=== PATIENT | female | born 1980 | race Caucasian/White ===

== ENCOUNTER 2024-02-04 06:27 | Day surgery (SDC) | payer OTHER, SELFPAY ==
[2024-01-17 06:48] VITALS: BMI 24.8
[2024-01-17 09:40] LABS: INR 1.04; PT 13.5 Sec (11.4-14.6)
[2024-01-17 09:41] LABS: APTT 30.5 Sec (23.4-35.0)
[2024-01-17 09:52] LABS: % Eosinophils 2.7 % (0-6); % Immature Granulocytes 0.4 % (0-0.5); % Lymphocytes 24.3 % (20.5-51.1); % Neutrophils 62.6 % (42.2-75.2); Absolute Basophils 0.1 10^3/uL (0-0.2); Absolute Eosinophils 0.1 10^3/uL (0-0.7); Absolute Lymphocytes 1.2 10^3/uL (1.2-3.4); Absolute Monocytes 0.5 10^3/uL (0.1-0.6); Absolute Neutrophils 3.2 10^3/uL (1.4-6.5); Blood Urea Nitrogen 16 mg/dl (7-17); Calcium 9.8 mg/dl (8.4-10.2); Carbon Dioxide 26 mmol/L (22-30); Chloride 106 mmol/L (98-107); Estimated Creatinine Clearance 103 ml/min; Glucose 83 mg/dl (70-99); Hematocrit 39.7 % (37.0-47.0); Hemoglobin 12.9 g/dL (12.0-16.0); Mean Corp Hgb Conc. 32.5 g/dL (33.0-37.0); Mean Corpuscular Hgb 30.9 pg (27.0-31.0); Mean Platelet Volume 9.9 fL (7.4-10.4); Nucleated Red Blood Cells % 0 %; Platelet Count 254 10^3/uL (130-400); Potassium 3.8 mmol/L (3.5-5.1); Red Blood Cell Count 4.18 10^6/uL (4.20-5.40); Red Cell Dist. Width 13.4 % (11.5-14.5); Sodium 142 mmol/L (135-145); White Blood Cell Count 5.1 10^3/uL (4.8-10.8); eGFR > 60.00
[2024-01-17 10:08] LABS: Beta HCG Quantitative < 2.39 mIU/ml
[2024-02-04] VITALS (14 sets, daily range): BP systolic 130–154; BP diastolic 89–100; BMI 24.8
[2024-02-04] MEDS: TYLENOL 1000 MG PO (12:28)
[2024-02-04] MEDS: NORMOSOL-R 1000 IV ×2 (12:28→21:19)
--- NOTE | 2024-02-04 13:56 | W.SUR.PREOP ---
Pre-Operative Surgical Note
-
I have examined this patient prior to the performance of the scheduled procedure.
The patient's condition is unchanged from the time of the current History and
Physical and the patient is able to undergo the scheduled procedure.
Updated today
--- NOTE | 2024-02-04 17:23 | W.IMMPOSTOP ---
Surgical Immed Post Op Note
-
Primary Surgeon: Glenny Lombardi DO
Fuels Sales Representative: MITCHELL Allen, MITCHELL Barclay
Pre-op Diagnosis: menorrhagia, anemia
Post-op Diagnosis: same
Procedure Performed: Robotic laparoscopic hysterectomy bilateral salpingectomy
Anesthesia Type: general Dr. Wilde
Specimen / Cultures: uterus, cervix, fallopian tubes
Estimated Blood Loss: 15ml
Urine output: 600ml clear yellow
Complications: none
Operative Findings: Enlarged globular shaped uterus, appearance suggestive of adenomyosis. Normal appearing ovaries with follicular cysts.
Counts correct times 2.
Stable to recovery.
[2024-02-04] MEDS: ZOFRAN 4 MG IV (17:28)
[2024-02-04] MEDS: DILAUDID 0.5 MG IV ×3 (17:29→18:07)
[2024-02-04] MEDS: COMPAZINE 10 MG IV (17:52)
[2024-02-04] MEDS: ROXICODONE 5 MG PO ×2 (19:39→23:44)
[2024-02-04] MEDS: TORADOL 15 MG IV (19:40)
[2024-02-04] MEDS: TOPAMAX 25 MG PO (21:18)
--- NOTE | 2024-02-05 00:21 | PTCARENOTE ---
late entry: 02/04/241929 patient oriented to room and floor routines. Inst regional sales coordinator chapa and call chapa within reach. Pt inst on need to void by 0015 02/04. Pt inst to call for assistance to get OOB for first time. Patient denies N/v at this time. pain
12/26 see mar for documentation of pain meds given. POC reviewed, pt verbalized understanding.
[2024-02-05] MEDS: TORADOL 15 MG IV ×2 (02:42→08:41)
[2024-02-05] MEDS: NORMOSOL-R IV ×2 (02:50→10:58)
[2024-02-05 03:30] VITALS: BP 140/91
[2024-02-05 06:33] LABS: % Basophils 0.2 % (0-2); % Eosinophils 0.1 % (0-6); % Immature Granulocytes 0.3 % (0-0.5); % Lymphocytes 11.2 % (20.5-51.1); % Monocytes 8.3 % (1.7-9.3); % Neutrophils 79.9 % (42.2-75.2); Absolute Monocytes 0.7 10^3/uL (0.1-0.6); Absolute Neutrophils 6.9 10^3/uL (1.4-6.5); Hematocrit 35.2 % (37.0-47.0); Hemoglobin 11.9 g/dL (12.0-16.0); Mean Corp Hgb Conc. 33.8 g/dL (33.0-37.0); Mean Corpuscular Hgb 32.6 pg (27.0-31.0); Mean Corpuscular Volume 96.4 fL (81.0-99.0); Mean Platelet Volume 9.6 fL (7.4-10.4); Nucleated Red Blood Cells % 0 %; Platelet Count 264 10^3/uL (130-400); Red Blood Cell Count 3.65 10^6/uL (4.20-5.40); Red Cell Dist. Width 13.2 % (11.5-14.5); White Blood Cell Count 8.7 10^3/uL (4.8-10.8)
[2024-02-05 07:00] LABS: Blood Urea Nitrogen 14 mg/dl (7-17); Carbon Dioxide 26 mmol/L (22-30); Chloride 106 mmol/L (98-107); Estimated Creatinine Clearance 90 ml/min; Potassium 4.8 mmol/L (3.5-5.1); Sodium 137 mmol/L (135-145)
[2024-02-05 07:15] VITALS: BP 141/91
[2024-02-05] MEDS: DIOVAN 80 MG PO (08:38)
[2024-02-05] MEDS: PROTONIX 40 MG PO (08:39)
[2024-02-05] MEDS: LAMICTAL 100 MG PO (08:39)
[2024-02-05] MEDS: TOPAMAX 25 MG PO (08:39)
[2024-02-05] MEDS: ZOLOFT 150 MG PO (08:39)
[2024-02-05] MEDS: ROXICODONE 2.5 MG PO (08:57)
--- NOTE | 2024-02-05 11:02 | CM ---
Initial assessment completed with patient who lives with her and 3 children (7-10-15 y/o) in a 2 story home with B/B on 1st floor and 2 steps to enter. No DME or in-home services. MARBLE COPER was independent, drove and worked. No psychiatric
hospitalizations. [facility]acy is [facility] on [address] in [place], PCP is Dr. April Cooley. Anticipate no needs at discharge.
[2024-02-05 11:35] VITALS: BP 128/90
--- NOTE | 2024-02-05 12:21 | W.DS.TRANS ---
DC Summary - Studio Coordinator
-
Discharge Instructions:
Sleep Apnea Risk Low
Discharge Diagnosis/Procedures Robotic laparoscopic hysterectomy b/l
salpingectomy
Diet Regular
Activity No strenuous activity
Driving Restrictions No driving for 1 week
Bathing Restrictions OK to Shower
Instructions:
Stand-Alone Forms:
Changes to Home Medications: Yes
Discharge Medications:
DC Medications w/original date entered in [facility]
lamotrigine 25 mg tablet (Lamictal) 100 mg PO DAILY Neurological Condition 09/08/16
sertraline 100 mg tablet (Zoloft) 150 mg PO DAILY Mental Health/Anxiety 09/08/16
ibuprofen 600 mg tablet 600 mg PO Q6H PRN Pain 5 days #20 tabs 04/25/23
ondansetron 4 mg disintegrating tablet 4 mg PO TIDPRN PRN nausea/vomiting 5 days #15 tabs 04/25/23
oxycodone 5 mg capsule 10 mg (2 x 5 mg) PO Q4H PRN Pain #30 caps 04/25/23
atomoxetine 80 mg capsule (Strattera) 80 mg PO DAILY Neurological Condition 02/03/24
omeprazole 20 mg capsule,delayed release 20 mg PO DAILY Gastrointestinal Issue 02/03/24
topiramate 25 mg tablet (Topamax) 25 mg PO BID 02/03/24
valsartan 80 mg tablet 80 mg PO DAILY Blood Pressure 02/03/24
acetaminophen 325 mg tablet 650 mg (2 x 325 mg) PO SDS-Q4HPRN PRN mild pain #0 tabs 02/04/24
oxycodone 5 mg tablet 5 mg PO Q6HPRN PRN moderate severe pain #14 tabs 02/04/24
scopolamine base 1 mg over 3 days transdermal patch 1 patch transdermal Q3D PRN PONV 02/04/24
Home Medication Changes
Pending Results: Yes
Additional Pending Results:
surgical path
Total time spent discharging patient (in min): 30
--- NOTE | 2024-02-05 12:26 | CM ---
Patient has been medically cleared for discharge to home with no additional skilled services. Patient has arranged for transport home.
--- NOTE | 2024-02-05 12:52 | W.PN.OBG.DWH ---
Today's Communication / Plan
-
dchome
Assessment/Plan
-
POD#1 s/p RA TLH B/L salpingectomy
Doing well postop and stable for dc home today.
Reviewed dc instructions
Meds list has error but cannot be corrected since noted after list finalized and discharge order in.
Oxycodone 5mg 1 PO Q 4-6 hr was Rx'd and erx to [facility] pharmacy. Disp # 14 tabs no refill.
The list has oxycodone disp #30 tabs which was not sent and is incorrect. Med deleted but unable to delete off list due to signed already.
ALso erx sent yesterday to [facility] canceled. Wrong pharmacy
Subjective Data
-
POD#1
No complaints
Feeling well.
Voiding without difficulty.
Roberto diet
Objective Data
-
Laboratory Results
02/05/24 05:51
02/05/24 05:51
Vital Signs
Temp Pulse Resp BP Pulse Ox
98.4 F 88 16 128/90 98
02/05/24 11:35 02/05/24 11:35 02/05/24 11:35 02/05/24 11:35 02/05/24 11:35
VSS afeb
cor: regular rate
Pulm: clear
Abd: soft +bs NDNT inc cdi
ext: no calf pain
no active vag bleeding
--- NOTE | 2024-02-05 13:06 | W.PN.UPDATE ---
Update Note
Progress Note Update
Pt was planning to be discharged day of surgery but was admitted overnight due to nausea and pain. I did send her Erx for oxycodone 5mg #14 to [facility] which was default pharmacy in system yesterday.
Today pt asking me to make sure pharmacy for rx is [facility]. I sent new Rx to [facility] and then called [facility] to cancel that rx. [facility] pharmacy personnel telling me somone picked up the Rx already today.
Called [facility] pharmacy to alert them to cancel Rx for oxycodone there. Advised to removed scopolamine patch after 72 [address] from placing.
== END 2024-02-05 13:55 | disposition home or self-care (01) ==
LOC: SDS 06:27
PROVIDERS: ATTENDING PHYSICIAN Obstetrics & Gynecology; FAMILY PHYSICIAN Family Medicine
DX: N84.0 Polyp of corpus uteri (principal); N92.0 Excessive and frequent menstruation with regular cycle; D50.0 Iron deficiency anemia secondary to blood loss (chronic)
CPT/HCPCS: 58571; 88307; 36415; 80048; 80051; 82565; 84520; 84702; 85025; 85610; 85730; 86850; 86900; 86901; 87070

== ENCOUNTER 2024-03-01 02:43 | Emergency (ER) | payer OTHER, SELFPAY ==
[2024-03-01 02:46] VITALS: BP 157/105
[2024-03-01 03:02] VITALS: BMI 26.7
[2024-03-01 03:36] LABS: % Basophils 0.8 % (0-2); % Immature Granulocytes 0.5 % (0-0.5); % Lymphocytes 30.9 % (20.5-51.1); % Monocytes 8.3 % (1.7-9.3); % Neutrophils 56.5 % (42.2-75.2); Absolute Basophils 0.1 10^3/uL (0-0.2); Absolute Eosinophils 0.2 10^3/uL (0-0.7); Absolute Lymphocytes 1.9 10^3/uL (1.2-3.4); Absolute Monocytes 0.5 10^3/uL (0.1-0.6); Absolute Neutrophils 3.6 10^3/uL (1.4-6.5); Hematocrit 37.4 % (37.0-47.0); Hemoglobin 12.9 g/dL (12.0-16.0); Mean Corp Hgb Conc. 34.5 g/dL (33.0-37.0); Mean Corpuscular Hgb 31.5 pg (27.0-31.0); Mean Corpuscular Volume 91.2 fL (81.0-99.0); Mean Platelet Volume 9.1 fL (7.4-10.4); Nucleated Red Blood Cells % 0 %; Platelet Count 257 10^3/uL (130-400); White Blood Cell Count 6.3 10^3/uL (4.8-10.8)
[2024-03-01 03:40] LABS: INR 1.04; PT 13.4 Sec (11.4-14.6)
[2024-03-01 03:41] LABS: APTT 32.3 Sec (23.4-35.0)
--- NOTE | 2024-03-01 03:46 | ED.GENMED ---
History of Present Illness
General
Chief Complaint: Vaginal Bleeding
Source: patient
Time Seen by Provider: 03/01/24 02:56
History of Present Illness
History of Present Illness:
This is a pleasant 43-year-old female who had a hysterectomy on 02/03. For the last week she has been having BRB and Clots per Vagina. Tonight was the worst. She awakened to a fist sized clot and was then covered in BRB. Her GEOTECHNICAL ENGINEERING TECHNICIAN advised her in
the past to come to the ER if she saw any BRB. Currently she is spotting. She reports that the spotting occurs after the blood passage. She says tonmaria c's bleeding is the worst she has seen. Patient admits to having a yeast infection medication
applicator in place for 5 days ending 2 days ago. Denies intercourse or anything else in the vagina during the recovery period.
Past History
Past History
ED Past Medical History: Other (Migraines, Renal calculus, Anemia, )
ED Past Surgical History: Tonsilectomy (and adenoids), Urological (Kidney stents, ) and Other (Parahyperthyroidism with partial thyroidectomy)
Social History
Tobacco: Former smoker
Alcohol: None
Personal:
Living: with family
Phy Exam
General Physical Exam
General Presentation: well appearing and mild distress
General age: appears stated age
General Skin: warm and dry
General Habitus: normal
General Mental: alert
Cardiovascular Exam
Cardiovascular Exam: regular rate/rhythm and no edema
Pulmonary Exam
Pulmonary Exam: lungs clear, no respiratory distress and no cough
Genitourinary Exam Female
Exam Female: other (Deferred per OB. OB will be performing this portion of the examination.)
Neurological Exam
Neurological Exam: alert and oriented x3
Musculoskeletal Exam
Musculoskeletal Exam: full ROM
Skin Exam
Skin Exam: normal color and warm/dry
Psychiatric Exam
Psychiatric Exam: normal mood/affect
Course
Orders/Labs/Results
Orders:
Orders
03/01/24 02:55
US Pelvis Only (non-obstetric) Urgent
Comment:
Reason For Exam: vag bleeding
03/01/24 03:23
Complete Blood Count/With Diff Urgent
Comprehensive Metabolic Panel Urgent
PTT Urgent
Prothrombin Time Urgent
Abnormal Lab Results
03/01/24
03:23
RBC 4.10 L 10^6/uL
(4.20-5.40)
MCH 31.5 H pg
(27.0-31.0)
Chloride 108 H mmol/L
(98-107)
BUN 22 H mg/dl
(7-17)
Glucose 102 H mg/dl
(70-99)
03/01/24 03:23
03/01/24 03:23
Vital Signs
Initial and Last Documented VS:
Initial Vital Signs
Temp Pulse Resp BP Pulse Ox
98.3 F 108 18 157/105 99
03/01/24 02:46 03/01/24 02:46 03/01/24 02:46 03/01/24 02:46 03/01/24 02:46
Last Documented Vital Signs
Temp Pulse Resp BP Pulse Ox
98.3 F 79 20 130/90 98
03/01/24 02:46 03/01/24 05:17 03/01/24 05:17 03/01/24 05:17 03/01/24 05:17
*Critical Care Note
Total Time (30-74mins, 75-104mins- exclusive of procedures): Not Applicable
Patient Management
Social determinants of health affecting care: Strong social support
Discussion with other providers: Director Metabolism
Update Note
Update Note:
Dr. Smyth contacted via Barry text. She came down to see and examine the patient. She will contact Dr. Lombardi to inform her of her findings.
ED Attending Note
-
Portions of this chart may have been created with voice recognition software.� Occasional wrong word or��sound alike� substitutions may have occurred due to the inherent limitations of voice recognition software.
Discharge Plan
Departure
Patient Disposition: Home (Routine Discharge)
Date of Disposition: 03/01/24
Time of Disposition: 04:43
Patient with high blood pressure during this ER visit?: Yes
Condition: Good
Discharge Problem:
Post hysterectomy bleeding
Instructions: Heavy Periods (DC), BLOOD PRESSURE
Prescriptions:
No Action
lamotrigine [Lamictal] 25 MG tablet
50 mg PO DAILY
sertraline [Zoloft] 100 MG tablet
150 mg PO DAILY
ibuprofen 600 mg tablet
600 mg PO Q6H PRN (Reason: Pain) 5 Days Qty: 20 0RF
ondansetron 4 mg tablet,disintegrating
4 mg PO TIDPRN PRN (Reason: nausea/vomiting) 5 Days Qty: 15 0RF
valsartan 80 mg Tablet
160 mg PO DAILY
topiramate [Topamax] 25 mg Tablet
25 mg PO BID
omeprazole 20 mg Capsule,Delayed Release(Dr/Ec)
20 mg PO DAILY
atomoxetine [Strattera] 80 mg Capsule
80 mg PO DAILY
acetaminophen 325 mg Tablet
650 mg PO SDS-Q4HPRN PRN (Reason: mild pain) Qty: 0 0RF
oxycodone 5 mg tablet
5 mg PO Q4H
Referrals:
Glenny Lombardi, [Active] - Next open appointment
April Cooley MD [Family Provider] -
Activity Restrictions/Additional Instructions:
Please follow-up with Dr. Lombardi as discussed.
Complete pelvic rest. Nothing in the vagina.
It was a pleasure meeting you and taking part in your care. We hope for your continued healing and wellness.
Please read discharge instructions in their entirety. However, they are for general education and may not describe your exact diagnosis at discharge. Information on your ER visit and medical conditions were discussed with you along with appropriate
follow up information...
If indicated, please take your medications as instructed and indicated on discharge paperwork.
Please schedule a follow up appointment as directed. Call to schedule an appointment
Please return to the emergency department with ANY change in, persisting, or worsening of symptoms. If any of your symptoms do not improve, or persist, or become more severe within 6-12 hours, please return to the emergency department for further
care.
Please return to the emergency department if you develop a headache, neck pain/stiffness, fever greater than 100.4F, chest pain, shortness of breath, persistent nausea, vomiting, slurred speech, difficulty walking, numbness/tingling, weakness, signs
of infection or any other symptoms that are worrisome to you.
If you have any questions or concerns please do not hesitate to call the Hospital at or E-mail me directly at [email or web address]
Interventions
Interventions:
*Risk Screen - Suicide Last Done: 03/01/24 02:46
*General Assessment Last Done: 03/01/24 02:46
*Neglect/Abuse Screening Last Done: 03/01/24 02:46
ED- Fall Risk Assessment Last Done: 03/01/24 03:02
*ED COVID-19 Vaccine History Last Done: 03/01/24 05:20
*Nursing Disposition Last Done: 03/01/24 05:20
ED-Female Genitourinary Assessment Last Done: 03/01/24 03:02
Discharge Date and Time
Discharge Date/Time: 03/01/24 05:20
Print Language: AZERI
[2024-03-01 03:59] LABS: ALT (SGPT) < 10 U/L (0-35); AST (SGOT) 15 U/L (14-36); Albumin 4.5 g/dl (3.5-5.0); Alkaline Phosphatase 88 U/L (38-126); Blood Urea Nitrogen 22 mg/dl (7-17); Carbon Dioxide 23 mmol/L (22-30); Chloride 108 mmol/L (98-107); Estimated Creatinine Clearance 99 ml/min; Glucose 102 mg/dl (70-99); Potassium 3.7 mmol/L (3.5-5.1); Sodium 139 mmol/L (135-145); Total Bilirubin 0.3 mg/dl (0.2-1.3); Total Protein 6.9 g/dl (6.3-8.2); eGFR > 60.00
[2024-03-01 04:40] VITALS: BP 140/90
--- NOTE | 2024-03-01 05:00 | CON.MD ---
Consultation - Medical
-
43yo s/p RA-TLH/BS on 02/06 presents from home with c/o vaginal bleeding. She states that over the past week, she has had 3 separate episodes where she will wake up bleeding. She would not notice anything throughout the day, maybe some
spotting in the morning after the bleed. She says today was the worst where she woke up to a fist sized clot with heavier bleeding. She does admit that prior to onset of bleeding her partner did place a finger in the vagina. In addition, she has
been using a Monistat applicator x5 days for a suspected yeast infection. She has noticed mild cramping, otherwise no UTI symptoms. Did have loose stools post-op but now normalized.
PMHx: depression, melanoma, migraines, renal stones, hyperparathyroidism
PSHx: Parathyroidectomy, wisdom teeth, tonsillectomy, lithotripsy, ureteral stents
POBHx: x3, SAB x2
FHx:Dad- PR, Mother- HTN, MGM- Breast CA
SHx: Neg x3
Meds: strattera 80mg QD, Lamictal 50mg QD, Omeprazole 20mg QD, tylenol prn, Zoloft 150mg, topamax 25mg BID, valsartan 160mg QD
All: adhesive, latex, sulfa
ROS: per HPI
Vitals & Labs: see below
Gen: nad aaox3
SSE: there is a small amount of dark blood noted in posterior vagina, cleared with 1 scopette. I am able to visualize vaginal cuff and it appears intact. There is 1 area of irritation along the right side of the cuff and I can see a stitch within
the vaginal mucosa but no visible separation/defect noted, no active source of bleeding noted
SVE: on palpation of the cuff, it feels intact, no palpable defect
Pelvic US: inconclusive, visualization poor and limited due to empty bladder.
A/P: 43yo s/p RA-TLH/BS with vaginal bleeding
Reviewed exam findings with the patient, that there was one small area of irritation at the right of the cuff, but no active bleeding noted and no obvious defect noted so at this time I do not think surgical exploration is needed. I discussed her
bleeding could be related to the sutures starting to break down. Another thought is that if there was any post-op hematoma in the pelvis from the surgery, that this is starting to drain out through the cuff. I strongly advised that she have NOTHING
in the vagina to avoid any additional irritation to the area. I would also like her to f/u with the surgeon this week for an additional exam to again ensure no defect was missed on my exam today. patient expressed understanding.
Encounter and documentation time= 30 mins
Vital Signs and Labs
-
Vital Signs and Labs:
Vital Signs
Temp Pulse Resp BP Pulse Ox
98.3 F 79 20 130/90 98
03/01/24 02:46 03/01/24 05:17 03/01/24 05:17 03/01/24 05:17 03/01/24 05:17
Lab Results
03/01/24 03:23
03/01/24 03:23
PT 13.4 Sec (11.4-14.6) 03/01/24 03:23
INR 1.04 03/01/24 03:23
APTT 32.3 Sec (23.4-35.0) 03/01/24 03:23
Sodium 139 mmol/L (135-145) 03/01/24 03:23
Potassium 3.7 mmol/L (3.5-5.1) 03/01/24 03:23
BUN 22 mg/dl (7-17) H 03/01/24 03:23
Glucose 102 mg/dl (70-99) H 03/01/24 03:23
Calcium 10.0 mg/dl (8.4-10.2) 03/01/24 03:23
[2024-03-01 05:17] VITALS: BP 130/90
== END 2024-03-01 05:20 | disposition home or self-care (01) ==
LOC: EMR 02:43
PROVIDERS: EMERGENCY PHYSICIAN Student in an Organized Health Care Education/Training Program; FAMILY PHYSICIAN Family Medicine
DX: N99.820 Postprocedural hemorrhage of a genitourinary system organ or structure following a genitourinary system procedure (principal); Z79.899 Other long term (current) drug therapy; Z80.3 Family history of malignant neoplasm of breast; Z82.49 Family history of ischemic heart disease and other diseases of the circulatory system; Z85.820 Personal history of malignant melanoma of skin; Z87.442 Personal history of urinary calculi; Z87.891 Personal history of nicotine dependence; Z88.2 Allergy status to sulfonamides; Z90.89 Acquired absence of other organs
CPT/HCPCS: 99283; 80053; 85025; 85610; 85730

== ENCOUNTER → 2024-03-03 12:00 | Outpatient (REF) | payer OTHER, SELFPAY | LOC: HWRAD 12:00 | PROVIDERS: ATTENDING PHYSICIAN Obstetrics & Gynecology; FAMILY PHYSICIAN Family Medicine | DX: T81.89XA Other complications of procedures, not elsewhere classified, initial encounter (principal) | CPT/HCPCS: 74177; Q9967 ==